=== PATIENT | male | born 1950 | race Caucasian/White ===

== ENCOUNTER 2016-08-28 08:45 | Inpatient (IN) | payer OTHER ==
--- NOTE | ~2016-08-28 | PA ---
Unit #: [id number] #: [id number] Patient: FERNY ANNA [id number] [facility] [address] [place] [address] [id number] MR#: [id number] NAME: FERNY ANNA ROOM: P174 Age: 66 Sex: M Admission Date: 08/28/2016 : 1950 Date of Assessment: 08/28/2016 Attending Physician: Yann Gage M.D. Admitting Physician: Yann Gage M.D. PSYCHIATRIC ASSESSMENT IDENTIFYING INFORMATION The patient is a 66-year-old white male admitted to the [facility] unit with a history of opioid and alcohol abuse. INFORMANT(S) Chart, patient could not be aroused for interview. CHIEF COMPLAINT None given. HISTORY OF PRESENT ILLNESS The patient is a 66-year-old white male who is admitted reporting increasing abuse of alcohol and heroin. The patient reports that he has been using about a fifth of hard liquor on a daily basis as well as a gram of heroin by means of intravenous administration on a daily basis. The patient was last hospitalized at this facility in 2015 under the care of this physician. He maintained sobriety for no significant period of time thereafter. He was at the time of admission denying any suicidal or homicidal ideation. When seen today, the patient is sleeping soundly and cannot be aroused for interview. PAST PSYCHIATRIC HISTORY Reviewed, no changes. FAMILY HISTORY/SOCIAL HISTORY Reviewed, no changes. MEDICAL HISTORY Reviewed, no changes. MEDICATION HISTORY None. ALLERGIES None. MENTAL STATUS EXAM At this time, reveals the patient to be a soundly sleeping white male. Multiple attempts to arouse the patient are unsuccessful. ASSETS AND LIABILITIES Patient's assets to be assessed. Liabilities, lack of resources, sociopathy. Unit #: [id number] #: [id number] Patient: FERNY ANNA ADMITTING DIAGNOSES 1. Alcohol use disorder. 2. Opioid use disorder. 3. Antisocial personality traits versus disorder. PSYCHIATRIC PLAN/TREATMENT GOALS The patient remains hospitalized for safety and stabilization. Routine detoxification protocol to cover both opioids and alcohol has been initiated. The patient will participate in appropriate vail and milieu activities. DISCHARGE PLANNING Followup to take place through the auspices of [facility]. ESTIMATED LENGTH OF STAY Three to five days. Dictated by... Malinda Gillis TD: 08/28/2016 16:50 JOB #: [id number] PSYCHIATRIC ASSESSMENT Page 1 of 1 X Yann Gage MD PSYCHIATRIC ASSESSMENT
--- NOTE | ~2016-08-28 | HP ---
Unit #: [id number] #: [id number] Patient: FERNY ANNA [id number] [place] [address] [id number] MR#: [id number] NAME: FERNY ANNA ROOM: P174 Age: 66 Sex: M Admission Date: 08/28/2016 : 1950 Attending Physician: Yann Gage M.D. Admitting Physician: Yann Gage M.D. HISTORY AND PHYSICAL HISTORY OF PRESENT ILLNESS Ferny is a 66 year old admitted to [facility] because of his polysubstance abuse which includes IV heroin and alcohol. PAST MEDICAL HISTORY 1. Long history of illicit substance abuse to include IV heroin. 2. History of alcohol abuse. 3. Hepatitis C. 4. COPD. PAST SURGICAL HISTORY Left shoulder, left knee, left ankle. ALLERGIES No known drug allergies. SOCIAL HISTORY Smokes one pack per day. Drinks a fifth of liquor on a daily basis and admits to a long history of opioid abuse to include IV heroin. FAMILY HISTORY Medically noncontributory. REVIEW OF SYSTEMS CONSTITUTIONAL: No fever or chills. HEENT: Denies any sore throat, ear pain or runny nose. CARDIOVASCULAR: Denies chest pain, irregular heart rhythm or palpitations. CHEST: Denies shortness of breath or cough. No hemoptysis. GASTROINTESTINAL: Denies nausea, vomiting, diarrhea or chronic constipation. ENDOCRINE: Denies history of increased thirst or urination. No recent significant weight loss or gain. GENITOURINARY: Denies dysuria, frequency, or hematuria. SKIN: Denies any rashes. HEMATOLOGIC: Denies history of increased bleeding or bruising. MUSCULOSKELETAL: Denies any hot, swollen joints. No generalized muscle pain. NEUROLOGIC: Denies problems with vision or speech. No frequent, severe headaches. No numbness, tingling or weakness in any extremities. Denies loss of bladder or bowel control. CURRENT MEDICATIONS Unit #: [id number] #: [id number] Patient: FERNY ANNA Detox protocol PHYSICAL EXAMINATION GENERAL: Alert, well-nourished, in no apparent distress. VITAL SIGNS: Blood pressure 142/90, heart rate 74, respirations 16, temperature 98.6. WEIGHT: 215 pounds. HEIGHT: 6'3". SKIN: Warm and dry without rash or lesion. HEENT: Normocephalic. TMs not viewed. Oral and nasal passages clear. Conjunctivae clear. Pupils equal, round and reactive to light and accommodation. Extraocular movements intact. NECK: Supple without lymphadenopathy or thyromegaly. HEART: Regular rate and rhythm without murmur. LUNGS: Clear. ABDOMEN: Soft, nontender. : Not done. EXTREMITIES: No evidence of cyanosis, clubbing or edema. Moves all extremities without focal deficit. NEUROLOGICAL: Grossly within normal limits. Cranial Nerves: II: Visual quinn are intact. III, IV AND : Extraocular movements are intact. Pupils are equal, round and reactive to light. V: Facial sensation is grossly normal. VII: Facial movements and expression are normal. VIII: Auditory acuity grossly intact. IX, X: Uvula is midline. Phonation is normal. XI: Patient shrugs shoulders and turns head normally. XII: Tongue protrudes in the midline. Sensory and Motor Function: Sensory and motor sensation is grossly normal. Motor: moves all extremities well. Coordination: Gait is normal. Deep Tendon Reflexes: Intact. IMPRESSION Psychiatric admission RECOMMENDATIONS PSYCHIATRIC: Per psychiatrist. MEDICAL: I see no contraindications to participating in facility's activities. MEDICAL PROGNOSIS Good. MEDICAL CONDITION Stable. Dictated by... Alyson Blum P.A.-C. for Malinda Lou/ángel TD: 08/28/2016 21:22 JOB #: [id number] Unit #: [id number] #: [id number] Patient: FERNY ANNA HISTORY AND PHYSICAL Page 1 of 1 X Alyson Blum HISTORY AND PHYSICAL
[2016-08-29 09:31] LABS: BASOPHIL% 0.3 % (0-2.5); EOSINOPHIL# 0.1 X10e3 (0-0.7); EOSINOPHIL% 2.7 % (0.0-7.0); HEMATOCRIT 45.9 % (38.0-50.0); HEMOGLOBIN 15.3 gm/dL (13.0-16.0); LYMPHOCYTE# 1.4 X10e3 (1.0-3.5); LYMPHOCYTE% 27.3 % (17.0-45.0); MEAN CELL VOLUME 92.9 FL (83-96); MEAN CORPUSCULAR HEMOGLOBIN 30.9 PG (28-34); MEAN CORPUSCULAR HGB CONC 33.3 g/dL (30-36); MEAN PLATELET VOLUME 8.4 FL (6.5-11.5); MONOCYTE# 0.6 X10e3 (0-1.0); MONOCYTE% 10.6 % (3.0-12.0); NEUTROPHIL# 3.1 X10e3 (1.5-7.1); NEUTROPHIL% 59.1 % (40-75); PLATELET COUNT 140 X10e3 (140-420); RED BLOOD COUNT 4.94 X10e (3.90-5.60); WHITE BLOOD COUNT 5.3 X10e3 (4.0-10.5)
[2016-08-29 09:43] LABS: DIFF IND NO
[2016-08-29 09:51] LABS: URINE APPEARANCE TURBID; URINE BLOOD NEG (NEG); URINE COLOR DK YELLOW; URINE GLUCOSE NEG (NEG); URINE KETONE TRACE (NEG); URINE LEUKOCYTE ESTERASE NEG (NEG); URINE NITRATE NEG (NEG); URINE PH 6.5 (5-8); URINE PROTEIN 1+ (NEG); URINE SPECIFIC GRAVITY 1.019 (1.003-1.035)
[2016-08-29 09:54] LABS: URBCS1 AUWI 0-2 /[HPF] (0-2); URINE BACTERIA AUWI NEG (NEGATIVE); URINE SQUAMOUS EPITHELIAL CELL NONE SEEN /[HPF]; UWBCS1 AUWI 0-2 (0-5)
[2016-08-29 09:54] LABS: ALBUMIN SERUM 3.5 g/dL (3.5-5.0); BILIRUBIN,TOTAL 0.8 mg/dL (0.2-2.0); BUN/CREATININE RATIO 13.75; CREATININE SERUM 0.8 mg/dL (0.6-1.4); GLOM FILT RATE Estimated 94.4 mL/min (>60); POTASSIUM 3.6 mmol/L (3.5-5.1); PROTEIN TOTAL SERUM 6.4 g/dL (6.0-8.3)
[2016-08-29 10:01] LABS: URINE BILIRUBIN NEG (NEG)
[2016-08-29 10:35] LABS: AMPHETAMINE NEG (NEG); BARBITURATES POS (NEG); BENZODIAZEPINES POS (NEG); COCAINE NEG (NEG); MARIJUANA NEG (NEG); OPIATES POS (NEG); TRICYCLIC ANTIDEPRESSANTS NEG (NEG); U METHADONE NEG (NEG)
[2016-09-03 21:22] LABS: HA AB IGM (HEPPAN) Nonreactive (()); HB CORE AB IGM (HEPPAN) Nonreactive (Nonreactive); HB S AG (HEPPAN) Nonreactive (Nonreactive); HEP C AB (HEPPAN) Reactive (Nonreactive)
== END 2016-08-31 14:47 | disposition home or self-care (01) | DRG 897 ==
LOC: P1E 08:45
PROVIDERS: Specialist
PROC: HZ2ZZZZ Detoxification Services for Substance Abuse Treatment (ICD-10-PCS; principal; 2016-08-28)
DX: F10.10 Alcohol abuse, uncomplicated (principal); F11.10 Opioid abuse, uncomplicated; J44.9 Chronic obstructive pulmonary disease, unspecified; B19.20 Unspecified viral hepatitis C without hepatic coma; F17.210 Nicotine dependence, cigarettes, uncomplicated; F60.2 Antisocial personality disorder
CPT/HCPCS: 80053; 80074; 80307; 81003; 85025; 86592; 87522; 87806